=== PATIENT | male | born 1985 | race Caucasian/White ===

== ENCOUNTER → 2020-06-13 | Outpatient (CLI) | payer OTHER ==
[~2020-06-13] MED LIST: CATHETER FLUSH 10 ML SYR IV PRN; HOLD METFORMIN - RECEIVED CONTRAST 20 ML VIAL IV SCH; IOHEXOL 350 MG/ML 100 ML (OMNIPAQUE 350) VIAL IV ONE; NS 100 ML (IVPB) BAG IV ONE
--- NOTE | 2020-06-13 15:43 | Diagnostic Imaging Report ---
PROCEDURE: CT abdomen and pelvis with and without contrast. TECHNIQUE: Precontrast acquisitions were acquired through the abdomen and pelvis. Multiple contiguous axial images were obtained through the abdomen and pelvis after the administration of intravenous contrast. Auto Exposure Controls were utilized during the CT exam to meet ALARA standards for radiation dose reduction. INDICATION: Epigastric pain and diarrhea. FINDINGS: There is mild low-density in the liver indicating steatosis. No gallbladder, hepatic, pancreatic, splenic or adrenal gland abnormality is identified. The kidneys are also unremarkable in appearance without evidence of mass or hydronephrosis. There is no evidence of free fluid within the abdomen or pelvis. No pathologic adenopathy is identified. 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 There is no evidence of bowel hernia or obstruction. Localized disc space narrowing and bulging is present at the L5-S1 level. IMPRESSION: No acute abnormality is identified. 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 No bowel obstruction or other acute abnormality is identified although there is evidence of hepatic steatosis. Dictated by: Dictated on workstation # [id number]
== END ==
LOC: RAD 14:52
PROVIDERS: ATTEND Nurse Practitioner Family
DX: K40.90 Unilateral inguinal hernia, without obstruction or gangrene, not specified as recurrent (principal); E78.49 Other hyperlipidemia; E66.8 Other obesity; M79.10 Myalgia, unspecified site; R10.13 Epigastric pain; R19.7 Diarrhea, unspecified; R11.10 Vomiting, unspecified
CPT/HCPCS: 74178